=== PATIENT | female | born 1940 | race Caucasian/White ===

== ENCOUNTER 2016-04-29 09:40 | Emergency (ER) | payer MEDICARE, OTHER ==
[~2016-04-29 09:40] MED LIST: ACTIGALL300 M1 PO; BIOTIN PO; CELEXA20 M2 PO; CRANBERRY400 M2 PO; MULTIVITAMINS1 EAC6 PO; PERCOCET 5-3251 EACH PO; URSODIOL500 M1 PO; VITAMIN D1000 UNI3 PO; VITAMIN E1000 UNI4 PO
[2016-04-29 10:28] LABS: ANION GAP 14 mmol/L (0-20); BLOOD UREA NITROGEN 12 mg/dl (6-24); CARBON DIOXIDE-VENOUS 23 mmol/L (22-32); CHLORIDE 107 mmol/l (96-110); CREATININE 1.18 mg/dl (0.50-1.10); GLUCOSE 138 mg/dL (70-110); SODIUM 140 mmol/L (135-145); eGFR VALUE FOR BLACK 52 mL/Min
[2016-04-29 10:29] LABS: URINE BILIRUBIN NEGATIVE (NEG); URINE BLOOD SMALL (NEG); URINE GLUCOSE (UA) SMALL (NEG); URINE KETONE NEGATIVE (NEG); URINE LEUKOCYTE ESTERASE POSITIVE (NEG); URINE NITRITE NEGATIVE (NEG); URINE PROTEIN MODERATE (NEG); URINE SPECIFIC GRAVITY 1.015 (1.003-1.030)
[2016-04-29 10:34] LABS: URINE APPEARANCE CLOUDY; URINE COLOR YELLOW
[2016-04-29 10:41] LABS: URINE AMORPHOUS 1+; URINE BACTERIA 2+; URINE MUCUS 1+
[2016-04-29] MEDS ORDERED: CIPRO500 M2 PO (11:13)
[2016-04-29] MEDS ORDERED: ZOFRAN4 M2 PO (11:13)
[2016-04-29] MEDS ORDERED: PERCOCET 5-3251 EACH PO (11:13)
== END 2016-04-29 11:30 ==
LOC: EDMED 09:40
PROVIDERS: Emergency Medicine
DX: N39.0 Urinary tract infection, site not specified (principal); N18.9 Chronic kidney disease, unspecified
CPT/HCPCS: J2270; J2405; J7030